=== PATIENT | female | born 1975 ===

== ENCOUNTER 2017-08-13 01:11 | Emergency (ER) | payer SELFPAY ==
[2017-08-13 01:48] VITALS: BMI 25.6
[2017-08-13 01:49] VITALS: BP 141/78; PULSE 71; RESP 20; TEMP 98; O2SAT 99
--- NOTE | 2017-08-13 01:56 | ED PDOC ---
HPI: General Adult Time Seen by Provider: 08/13/17 01:34 Chief Complaint (Nursing): Palpitations Chief Complaint (Provider): Palpitations History Per: Patient History/Exam Limitations: no limitations Onset/Duration Of Symptoms: Days (x 1), Intermittent Episodes (x 3) Current Symptoms Are (Timing): Still Present Additional Complaint(s): Radha is a 42 y/o female who presents to the ED c/o 3 episodes of palpitations since yesterday night. Currently her left arm also feels asleep. Patient denies chest pain, shortness of breath, or cardiac history, but admits to stress at home. She denies smoking or drug use. PMD: None Provided Past Medical History Reviewed: Historical Data, Nursing Documentation, Vital Signs Vital Signs: Last Vital Signs Temp 98.0 F 08/13/17 01:46 Pulse 71 08/13/17 01:46 Resp 20 08/13/17 01:46 BP 141/78 08/13/17 01:46 Pulse Ox 99 08/13/17 03:45 - Medical History Other PMH: Denies cardiac history - Family History Family History: States: Unknown Family Hx - Social History Current smoker - smoking cessation education provided: No Drugs: Denies - Home Medications Home Medications: Ambulatory Orders Medication Instructions Recorded Sulfamethoxazole/Trimethoprim 1 tab PO BID #14 tab 08/25/16 [Bactrim DS 800 mg-160 mg] - Allergies Allergies/Adverse Reactions: Allergies Allergy/AdvReac Type Severity Reaction Status Date / Time No Known Allergies Allergy Verified 08/13/17 01:51 Review of Systems ROS Statement: Except As Marked, All Systems Reviewed And Found Negative Cardiovascular: Positive for: Palpitations. Negative for: Chest Pain Respiratory: Negative for: Shortness of Breath Neurological: Positive for: Numbness (left arm "feels asleep") Physical Exam - Reviewed Nursing Documentation Reviewed: Yes Vital Signs Reviewed: Yes - Physical Exam Appears: Positive for: Non-toxic, No Acute Distress Head Exam: Positive for: ATRAUMATIC, NORMAL INSPECTION, NORMOCEPHALIC Skin: Positive for: Normal Color, Warm, Dry Eye Exam: Positive for: Normal appearance, EOMI, PERRL. Negative for: Nystagmus ENT: Positive for: Normal ENT Inspection Neck: Positive for: Normal, Painless ROM, Supple Cardiovascular/Chest: Positive for: Regular Rate, Rhythm. Negative for: Murmur Respiratory: Positive for: Normal Breath Sounds. Negative for: Respiratory Distress Gastrointestinal/Abdominal: Positive for: Normal Exam, Bowel Sounds, Soft. Negative for: Tenderness Back: Positive for: Normal Inspection Extremity: Positive for: Normal ROM. Negative for: Pedal Edema, Deformity Neurologic/Psych: Positive for: Alert, Oriented, Mood/Affect (anxious). Negative for: Motor/Sensory Deficits - Laboratory Results Result Diagrams: 08/13/17 02:24 08/13/17 02:24 - ECG O2 Sat by Pulse Oximetry: 99 (RA) Pulse Ox Interpretation: Normal Medical Decision Making Medical Decision Making: Time: 1:48 Initial Impression: Anxiety Initial Plan; --EKG --BMP --Troponin I --CBC --Chest x-ray Time: 3:44 --Patient is feeling better and is stable for discharge Scribe Attestation: Documented by Pernell Gonzalez, acting as a scribe for Rich Payne MD Provider Scribe Attestation: All medical record entries made by the Scribe were at my direction and personally dictated by me. I have reviewed the chart and agree that the record accurately reflects my personal performance of the history, physical exam, medical decision making, and the department course for this patient. I have also personally directed, reviewed, and agree with the discharge instructions and disposition. Disposition - Clinical Impression Clinical Impression: Palpitations - Patient ED Disposition Is Patient to be Admitted: No - Disposition Referrals: [facility] [Outside] Disposition Time: 03:44 Condition: STABLE Instructions: Palpitations (ED), Stress (ED) Forms: [facility] (Persian) Print Language: BENINESE
[2017-08-13 02:31] LABS: BASO % 0.7 % (0.0-2.0); EOS # 0.1 K/uL (0.0-0.7); EOS % 1.8 % (0.0-4.0); HEMATOCRIT 34.1 % (34.0-47.0); LYMPH % 28.7 % (20.0-40.0); MEAN CELL VOLUME 82.7 fl (81.0-99.0); MEAN CORPUSCULAR HGB CONC 32.6 g/dL (33.0-37.0); MEAN PLATELET VOLUME 10.2 fl (7.2-11.7); MONO # 0.7 K/uL (0.0-0.8); MONO % 9.5 % (0.0-10.0); NEUT # 4.2 K/uL (1.8-7.0); NEUT % 59.3 % (50.0-75.0); RED CELL DISTRIBUTION WIDTH 14.7 % (11.5-14.5)
[2017-08-13 02:36] LABS: BLOOD UREA NITROGEN 12 mg/dl (7-17); CALCIUM 8.4 mg/dL (8.4-10.2); CARBON DIOXIDE 26 mmol/L (22-30); CHLORIDE 108 mmol/L (98-107); GFR AFRICAN-AMERICAN > 60; GLUCOSE,RANDOM 109 mg/dL (65-105); POTASSIUM 3.4 MMOL/L (3.6-5.0); SODIUM 140 mmol/l (132-148)
--- NOTE | 2017-08-13 11:17 | RAD ---
HISTORY: palpitation COMPARISON: No prior. TECHNIQUE: Chest PA and lateral FINDINGS: LUNGS: No active pulmonary disease. PLEURA: No significant pleural effusion identified. No pneumothorax apparent. CARDIOVASCULAR: Normal. OSSEOUS STRUCTURES: No significant abnormalities. VISUALIZED UPPER ABDOMEN: Normal. OTHER FINDINGS: None. IMPRESSION: No active disease. Concordant results with the preliminary interpretation rendered by the emergency department physician procedure.
--- NOTE | 2017-08-14 17:48 | CARD ---
APPROVED REPORT EKG Measurement Heart [id number] <Conclusion> Normal sinus rhythm Normal ECG
== END 2017-08-13 03:50 | disposition home or self-care (01) ==
LOC: H.ER 01:11
DX: R00.2 Palpitations (principal); F41.9 Anxiety disorder, unspecified

== ENCOUNTER 2017-10-01 15:58 | Emergency (ER) | payer OTHER ==
[2017-10-01 15:59] VITALS: BMI 25.6
[2017-10-01 16:13] VITALS: BP 117/51; PULSE 98; RESP 18; TEMP 98.8; O2SAT 99
[2017-10-01] MEDS ORDERED: Sodium Chloride 0.9% 1,000 ML IV STA (17:26)
--- NOTE | 2017-10-01 18:24 | ED PDOC ---
HPI: General Adult Time Seen by Provider: 10/01/17 16:16 Chief Complaint (Nursing): Lower Extremity Problem/Injury History Per: Patient Additional Complaint(s): Pt. states since Thursday she's had "stiffening" of both feet and all fingers. States symptoms began after work. 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 Pt. states she took an OTC pain meds which did provide some relief but pain returned. Denies trauma, numbness, tingling, fever, chest pain, abdominal pain, N/V/D. Past Medical History Reviewed: Historical Data, Nursing Documentation, Vital Signs Vital Signs: Last Vital Signs Temp 98.8 F 10/01/17 16:06 Pulse 98 H 10/01/17 16:06 Resp 18 10/01/17 16:06 BP 117/51 L 10/01/17 16:06 Pulse Ox 99 10/01/17 18:26 - Family History Family History: States: No Known Family Hx - Home Medications Home Medications: Ambulatory Orders Medication Instructions Recorded Sulfamethoxazole/Trimethoprim 1 tab PO BID #14 tab 08/25/16 [Bactrim DS 800 mg-160 mg] Meloxicam [Mobic] 7.5 mg PO DAILY PRN #30 tab 10/01/17 - Allergies Allergies/Adverse Reactions: Allergies Allergy/AdvReac Type Severity Reaction Status Date / Time No Known Allergies Allergy Verified 10/01/17 16:14 Review of Systems ROS Statement: Except As Marked, All Systems Reviewed And Found Negative Physical Exam - Reviewed Nursing Documentation Reviewed: Yes Vital Signs Reviewed: Yes - Physical Exam Appears: Positive for: Well, Non-toxic, No Acute Distress Head Exam: Positive for: ATRAUMATIC, NORMAL INSPECTION, NORMOCEPHALIC Skin: Positive for: Normal Color, Warm. Negative for: Rash Eye Exam: Positive for: Normal appearance Neck: Positive for: Normal, Painless ROM Cardiovascular/Chest: Positive for: Regular Rate, Rhythm Respiratory: Positive for: CNT, Normal Breath Sounds Pulses-Dorsalis Pedis (L): 2+ Pulses-Dorsalis Pedis (R): 2+ Pulses-Radial (L): 2+ Pulses-Radial (R): 2+ Back: Positive for: Normal Inspection Extremity: Positive for: Normal ROM, Other (no joint swelling, tenderness, deformity, warmth, erythema). Negative for: Calf Tenderness (b/l) Neurologic/Psych: Positive for: Alert, Oriented. Negative for: Aphasia, Facial Droop - Laboratory Results Result Diagrams: 10/01/17 18:54 10/01/17 18:54 - ECG O2 Sat by Pulse Oximetry: 99 - Progress ED Course And Treament: Labs ordered. Toradol 30mg IV, IV NS bolus x 1 ordered. Disposition - Clinical Impression Clinical Impression: Arthralgia - Patient ED Disposition Is Patient to be Admitted: No - Disposition Referrals: [facility] [Outside] [facility] [Outside] Disposition: Routine/Home Disposition Time: 19:51 Condition: STABLE Additional Instructions: Follow up with [facility] for further evaluation. Return to ED immediately if symptoms persist or worsen. Prescriptions: Meloxicam [Mobic] 7.5 mg PO DAILY PRN #30 tab PRN Reason: Pain, Mild (1-3) Instructions: Arthralgia (ED) Forms: [facility] (English) Print Language: BELARUSIAN
[2017-10-01 19:00] LABS: BASO % 0.2 % (0.0-2.0); EOS # 0.2 K/uL (0.0-0.7); EOS % 1.8 % (0.0-4.0); HEMOGLOBIN 10.5 g/dL (12.0-16.0); LYMPH # 1.3 K/uL (1.0-4.3); LYMPH % 12.9 % (20.0-40.0); MEAN CELL VOLUME 83.5 fl (81.0-99.0); MEAN CORPUSCULAR HEMOGLOBIN 26.8 pg (27.0-31.0); MEAN CORPUSCULAR HGB CONC 32.2 g/dL (33.0-37.0); MONO # 0.7 K/uL (0.0-0.8); MONO % 6.9 % (0.0-10.0); NEUT # 7.9 K/uL (1.8-7.0); NEUT % 78.2 % (50.0-75.0); RBC 3.93 Mil/uL (3.80-5.20); RED CELL DISTRIBUTION WIDTH 14.7 % (11.5-14.5); WHITE BLOOD COUNT 10.1 K/uL (4.8-10.8)
[2017-10-01 19:10] LABS: SQUAMOUS EPITHIAL 7 /hpf (0-5); URINE BACTERIA OCC (<OCC); URINE BILIRUBIN NEGATIVE (NEGATIVE); URINE BLOOD NEGATIVE (NEGATIVE); URINE CLARITY SLIGHTY-CLOUDY (Clear); URINE COLOR YELLOW (YELLOW); URINE GLUCOSE (UA) NEG (Normal); URINE LEUKOCYTE ESTERASE NEG Leu/uL (Negative); URINE NITRATE NEGATIVE (NEGATIVE); URINE PROTEIN 30 mg/dL (NEGATIVE)
[2017-10-01 19:23] LABS: ALB/GLOB RATIO 0.9 (1.0-2.1); ALBUMIN 3.5 g/dL (3.5-5.0); ALT/SGPT 31 U/L (9-52); AST/SGOT 19 U/L (14-36); BLOOD UREA NITROGEN 12 mg/dl (7-17); CALCIUM 8.4 mg/dL (8.4-10.2); GFR AFRICAN-AMERICAN > 60; GFR NON-AFRICAN AMERICAN > 60
== END 2017-10-01 20:27 | disposition home or self-care (01) ==
LOC: H.ER 15:58
DX: M25.50 Pain in unspecified joint (principal)
CPT/HCPCS: 80053; 81003; 81025; 82550; 85025; 85651; 96374; 99283; J1885; J7040

== ENCOUNTER 2018-02-19 12:15 | Emergency (ER) | payer SELFPAY ==
[2018-02-19 12:33] VITALS: O2SAT 99
[2018-02-19 12:34] VITALS: BMI 33.8
[2018-02-19] MEDS ORDERED: Sodium Chloride 0.9% 1,000 ML IV SCH (13:15)
--- NOTE | 2018-02-19 13:16 | ED PDOC ---
HPI: Abdomen Time Seen by Provider: 02/19/18 12:42 Chief Complaint (Provider): vomiting, abdominal pain History Per: Patient History/Exam Limitations: no limitations Onset/Duration Of Symptoms: Days (1) Outside of [place] travel?: No Current Symptoms Are (Timing): Still Present Severity: Severe Pain Scale Rating Of: 10 Location Of Pain/Discomfort: RUQ Quality Of Discomfort: Cramping Associated Symptoms: Vomiting (2 episodes today), Constipation (last BM yesterday, hard stool). denies: Fever, Chills, Nausea, Diarrhea, Back Pain, Urinary Symptoms Exacerbating Factors: None Alleviating Factors: None Last Bowel Movement: Yesterday (hard stool) Additional History Per: Patient Additional Complaint(s): 42 yr old presents to ED with complaint of 2 episodes of nonbilious/ nonbloody emesis today and RUQ pain since yesterday. Denies PMHx. Reports RUQ abdominal pain has recurred a few times in the past 6 months, usually is alleviated by 1 dose of ibuprofen. Today pain is 10/10, crampy, associated with emesis, not alleviated by anything, exacerbated pressing on her abdomen. Denies fevers, chills, dysuria, hematuria, nausea, headaches, weakness or dizziness. Reports hx of constipation, last bowel movement was yesterday-hard stool. Last meal tolerated was rice and steak for dinner last night. LMP: 02/19/18 Ob: , x 2, with bilateral tubal ligation x 1 (d/t right foot fracture) PMD: Dr. Klein at [facility] PMHx: denies SurgHx: right foot fracture repair, x1 and BTL, left oophorectomy SocHx: denies tobacco, Etoh or drugs Medications: Ibuprofen PRN Allergies: NKDA Past Medical History Vital Signs: Last Vital Signs Temp 97.9 F 02/19/18 16:25 Pulse 81 02/19/18 16:25 Resp 14 02/19/18 16:25 BP 125/79 02/19/18 16:25 Pulse Ox 99 02/19/18 16:25 - Medical History PMH: No Chronic Diseases - Surgical History Surgical History: Other surgeries: bilateral tubal ligation, right foot fracture repair - Family History Family History: States: Unknown Family Hx - Living Arrangements Living Arrangements: With Family - Social History Current smoker - smoking cessation education provided: No Ex-Smoker (has not smoked in the last 12 months): No Alcohol: None Drugs: Denies - Allergies Allergies/Adverse Reactions: Allergies Allergy/AdvReac Type Severity Reaction Status Date / Time No Known Allergies Allergy Verified 10/01/17 16:14 Review of Systems Constitutional: Negative for: Fever, Chills, Weakness Eyes: Negative for: Vision Change ENT: Negative for: Nose Discharge, Throat Pain Cardiovascular: Negative for: Chest Pain, Palpitations Respiratory: Negative for: Cough, Shortness of Breath Gastrointestinal: Positive for: Vomiting, Abdominal Pain, Constipation. Negative for: Nausea, Diarrhea Genitourinary Female: Negative for: Dysuria, Frequency Musculoskeletal: Negative for: Neck Pain, Shoulder Pain, Arm Pain Skin: Negative for: Rash, Lesions Neurological: Negative for: Weakness, Numbness, Altered Mental Status, Headache , Dizziness Physical Exam - Physical Exam Appears: Positive for: No Acute Distress Head Exam: Positive for: ATRAUMATIC, NORMOCEPHALIC Skin: Positive for: Normal Color, Warm, Dry Eye Exam: Positive for: EOMI, PERRL ENT: Negative for: Pharyngeal Erythema, Tonsillar Exudate Neck: Positive for: Painless ROM, Supple Cardiovascular/Chest: Positive for: Regular Rate, Rhythm. Negative for: Gallop , Murmur Respiratory: Positive for: Normal Breath Sounds. Negative for: Crackles, Rales , Rhonchi Pulses-Carotid (L): 2+ Pulses-Carotid (R): 2+ Pulses-Radial (L): 2+ Pulses-Radial (R): 2+ Gastrointestinal/Abdominal: Positive for: Bowel Sounds (normal), Soft (obese), Tenderness (severe RUQ tenderness to palpation, positive Barnard's sign, no rebound tenderness, no guarding). Negative for: Distended Back: Positive for: Normal Inspection Extremity: Positive for: Normal ROM. 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 Negative for: Motor/Sensory Deficits - Laboratory Results Result Diagrams: 02/19/18 13:19 02/19/18 13:19 - ECG O2 Sat by Pulse Oximetry: 99 - Progress ED Course And Treament: -CBC w/diff: normal -CMP: normal -lipase: normal -Udip: within normal limits -Upreg: negative -1L NS IV bolus, Pepcid 20mg IV once, Toradol 30mg IV once, Bentyl 10mg PO once -Abd US limited GB included: no cholelithiasis, hepatic steatosis present, limited evaluation of pancreas -13:20 Patient symptoms improved -15:00 PO challenge -17:00 patient tolerated PO fluids and solid, vitals remained stable, symptoms resolved Disposition - Clinical Impression Clinical Impression: Abdominal pain - Patient ED Disposition Is Patient to be Admitted: No Counseled Patient/Family Regarding: Diagnosis, Need For Followup - Disposition Referrals: Kayy Klein MD [Resident] - Disposition: Routine/Home Disposition Time: 17:28 Condition: IMPROVED Additional Instructions: -Follow up with your PMD within 2-3 days -Adequate hydration, small regular meals -Return to ED if symptoms worsen, persist or if any concern Instructions: Acute Abdomen (Belly Pain), Adult (DC), Nausea and Vomiting, Adult (DC) Print Language: YAKUT
[2018-02-19 13:25] LABS: BASO % 0.3 % (0.0-2.0); EOS % 0.3 % (0.0-4.0); HEMOGLOBIN 12.5 g/dL (12.0-16.0); LYMPH # 0.8 K/uL (1.0-4.3); LYMPH % 7.9 % (20.0-40.0); MEAN CELL VOLUME 84.5 fl (81.0-99.0); MEAN CORPUSCULAR HEMOGLOBIN 27.8 pg (27.0-31.0); MEAN CORPUSCULAR HGB CONC 32.9 g/dL (33.0-37.0); MEAN PLATELET VOLUME 10.3 fl (7.2-11.7); MONO # 0.4 K/uL (0.0-0.8); MONO % 3.4 % (0.0-10.0); NEUT # 9.1 K/uL (1.8-7.0); NEUT % 88.1 % (50.0-75.0); PLATELET COUNT 202 K/uL (130-400); RED CELL DISTRIBUTION WIDTH 14.2 % (11.5-14.5); WHITE BLOOD COUNT 10.3 K/uL (4.8-10.8)
[2018-02-19 13:33] LABS: ALB/GLOB RATIO 0.9 (1.0-2.1); ALBUMIN 3.9 g/dL (3.5-5.0); ALT/SGPT 29 U/L (9-52); AST/SGOT 19 U/L (14-36); BLOOD UREA NITROGEN 13 mg/dl (7-17); CALCIUM 8.4 mg/dL (8.4-10.2); GFR AFRICAN-AMERICAN > 60; GFR NON-AFRICAN AMERICAN > 60; LIPASE 45 U/L (23-300)
[2018-02-19] MEDS ORDERED: Famotidine 20mg/50ml 20 MG/50 ML BAG IVPB ONE ×2 (13:45→14:06)
--- NOTE | 2018-02-19 14:09 | US ---
HISTORY: vomiting, severe RUQ pain COMPARISON: None. TECHNIQUE: Sonographic evaluation of the right upper quadrant of the abdomen. FINDINGS: LIVER: Measures 16.2 cm in length. Increased echogenicity of the liver parenchyma. No mass. No intrahepatic bile duct dilatation. GALLBLADDER: Unremarkable. No gallstones. COMMON BILE DUCT: Measures 3 mm. No stones. No dilatation. PANCREAS: Not well-visualized. RIGHT KIDNEY: Measures 10.8 x 5.5 x 4.6 cm in length. Normal echogenicity. No calculus, mass, or hydronephrosis. AORTA: No aneurysmal dilatation. IVC: Unremarkable. OTHER FINDINGS: None . IMPRESSION: Hepatic steatosis. No cholelithiasis. Limited evaluation of the pancreas.
[2018-02-19 14:37] LABS: ANISOCYTOSIS SLIGHT; EOSINOPHIL 1 % (0-7); LARGE PLATELETS PRESENT; LYMPHOCYTE 10 % (20-50); MONOCYTE 4 % (0-10); NEUTROPHIL 85 % (42-75); OVALOCYTES MODERATE; PLATELET ESTIMATE NORMAL (NORMAL); TOTAL CELLS COUNTED 100
[2018-02-19 16:37] VITALS: RESP 14
[2018-02-19 18:06] VITALS: BP 125/75; PULSE 75; TEMP 98
== END 2018-02-19 18:07 | disposition home or self-care (01) ==
LOC: H.ER 12:15
DX: R10.11 Right upper quadrant pain (principal); K76.0 Fatty (change of) liver, not elsewhere classified
CPT/HCPCS: 76705; 80053; 81025; 83690; 85025; 96374; 99284; J1885; J7040

== ENCOUNTER 2018-07-23 00:14 | Emergency (ER) | payer OTHER ==
[2018-07-23 00:14] VITALS: BMI 33.8
[2018-07-23 00:39] VITALS: TEMP 98.6
[2018-07-23] MEDS ORDERED: Sodium Chloride 0.9% 1,000 ML IV STA (01:14)
[2018-07-23 01:40] LABS: BASO % 0.5 % (0.0-2.0); EOS # 0.1 K/uL (0.0-0.7); EOS % 1.3 % (0.0-4.0); HEMOGLOBIN 12.4 g/dL (12.0-16.0); LYMPH # 2.1 K/uL (1.0-4.3); LYMPH % 25.2 % (20.0-40.0); MEAN CELL VOLUME 86.1 fl (81.0-99.0); MEAN CORPUSCULAR HGB CONC 33.7 g/dL (33.0-37.0); MEAN PLATELET VOLUME 9.9 fl (7.2-11.7); MONO # 0.8 K/uL (0.0-0.8); MONO % 9.8 % (0.0-10.0); NEUT # 5.3 K/uL (1.8-7.0); NEUT % 63.2 % (50.0-75.0); RBC 4.26 Mil/uL (3.80-5.20); RED CELL DISTRIBUTION WIDTH 14.2 % (11.5-14.5); WHITE BLOOD COUNT 8.4 K/uL (4.8-10.8)
[2018-07-23 01:48] LABS: ALBUMIN 3.5 g/dL (3.5-5.0); ALT/SGPT 31 U/L (9-52); AST/SGOT 17 U/L (14-36); BLOOD UREA NITROGEN 12 mg/dl (7-17); CALCIUM 8.5 mg/dL (8.4-10.2); GFR NON-AFRICAN AMERICAN > 60; LIPASE 52 U/L (23-300)
[2018-07-23] MEDS ORDERED: Sodium Chloride 0.9% 50 ML IV ONE (02:00)
[2018-07-23] MEDS ORDERED: Iohexol 300 100 ML IJ ONE (02:00)
--- NOTE | 2018-07-23 02:31 | ED PDOC ---
HPI: Back Time Seen by Provider: 07/23/18 00:59 Chief Complaint (Nursing): Hip Pain Chief Complaint (Provider): Right Flank Pain History Per: Patient History/Exam Limitations: no limitations Onset/Duration Of Symptoms: Hrs Current Symptoms Are (Timing): Still Present Quality Of Discomfort: "Pain" Additional Complaint(s): 43 year old female presents to the ER for an evaluation of right flank pain onset today morning. Patient states the pain is constant and worsening. She reports she had multiple episodes of vomiting. Denies diarrhea, fever or urinary symptoms. PMD: No Family Provider Past Medical History Reviewed: Historical Data, Nursing Documentation, Vital Signs Vital Signs: Last Vital Signs Temp 98.6 F 07/23/18 00:36 Pulse 70 07/23/18 00:36 Resp 13 07/23/18 00:36 BP 131/75 07/23/18 00:36 Pulse Ox 98 07/23/18 00:36 - Medical History PMH: No Chronic Diseases - Surgical History Surgical History: (x3) Other surgeries: ovary removal - Family History Family History: States: Unknown Family Hx - Social History Current smoker - smoking cessation education provided: No Alcohol: None Drugs: Denies - Allergies Allergies/Adverse Reactions: Allergies Allergy/AdvReac Type Severity Reaction Status Date / Time No Known Allergies Allergy Verified 10/01/17 16:14 Review of Systems ROS Statement: Except As Marked, All Systems Reviewed And Found Negative Constitutional: Negative for: Fever Gastrointestinal: Positive for: Vomiting. Negative for: Diarrhea Genitourinary Female: Negative for: Dysuria, Frequency, Incontinence, Hematuria Musculoskeletal: Positive for: Back Pain (right flank) Physical Exam - Reviewed Nursing Documentation Reviewed: Yes Vital Signs Reviewed: Yes - Physical Exam Appears: Positive for: Non-toxic, No Acute Distress Head Exam: Positive for: ATRAUMATIC, NORMAL INSPECTION, NORMOCEPHALIC Skin: Positive for: Normal Color, Warm, Dry. Negative for: Rash Eye Exam: Positive for: EOMI, Normal appearance, PERRL ENT: Positive for: Normal ENT Inspection Neck: Positive for: Normal, Painless ROM, Supple. Negative for: Decreased ROM Cardiovascular/Chest: Positive for: Regular Rate, Rhythm. Negative for: Murmur Respiratory: Positive for: Normal Breath Sounds. Negative for: Decreased Breath Sounds, Wheezing, Respiratory Distress Gastrointestinal/Abdominal: Positive for: Normal Exam, Soft. Negative for: Tenderness, Guarding, Rebound Back: Positive for: Other (Right flank pain). Negative for: L CVA Tenderness, R CVA Tenderness Extremity: Positive for: Normal ROM. Negative for: Tenderness, Pedal Edema, Deformity Neurologic/Psych: Positive for: Alert, Oriented (x3). Negative for: Motor/Sensory Deficits - Laboratory Results Result Diagrams: 07/23/18 01:37 07/23/18 01:37 - ECG O2 Sat by Pulse Oximetry: 98 (RA) Pulse Ox Interpretation: Normal - Progress Re-evaluation Time: 03:20 Condition: Re-examined, Improved Medical Decision Making Medical Decision Making: Time: 0113 Initial Impression: Right flank pain Differential Diagnosis includes but is not limited to: UTI, kidney stone, musculoskeletal pain Initial Plan: Abdomen & Pelvis IV contrast CT CMP Lipase ED Urine ED Urine Dipstick CBC w/ Differential Normal Saline 1000 mls/hr Toradol 30mg Reevaluation Time: 0257 Exam: CT SCAN OF THE ABDOMEN AND PELVIS WITH CONTRAST. CLINICAL HISTORY: Abdominal pain. TECHNIQUE: Multiple axial and coronal CT images were obtained through the abdomen and pelvis after administration of intravenous contrast material. COMMENTS: Moderate amount of fecal residue is noted in the large bowels. Uncomplicated colonic diverticulosis is seen. The liver is of uniform attenuation without mass or defect. There is no intra or extrahepatic biliary ductal dilatation. The spleen is normal. The gallbladder is within normal limits. The pancreas is of normal contour and attenuation characteristics. There is no evidence of adrenal mass. Both kidneys demonstrate prompt and equal nephrograms. The kidneys are normal in size, shape and configuration. There is no evidence of renal or ureteral mass. No renal or ureteral calculi are identified. There is no hydroureter or hydronephrosis. No evidence for appendicitis. There is no bowel wall thickening. No evidence for small or large bowel obstruction. There is no evidence of abdominal ascites or lymphadenopathy. There is no evidence of intrinsic or extrinsic bladder mass. There is no pelvic ascites or lymphadenopathy. Images of the lung bases show no evidence of pleural or parenchymal mass. There are no pleural effusions. The bony structures are free of lytic or blastic lesions. Fat containing umbilical hernia without incarceration. IMPRESSION: Moderate amount of fecal residue is noted in the large bowels. No evidence of acute abdominal or pelvic pathology. Scribe Attestation: Documented by Jessie Cameron, acting as a scribe for Gallito Klein MD. Provider Scribe Attestation: All medical record entries made by the Scribe were at my direction and personally dictated by me. I have reviewed the chart and agree that the record accurately reflects my personal performance of the history, physical exam, medical decision making, and the department course for this patient. I have also personally directed, reviewed, and agree with the discharge instructions and disposition. Disposition - Clinical Impression Clinical Impression: Flank pain - Patient ED Disposition Is Patient to be Admitted: No Doctor Will See Patient In The: Office Counseled Patient/Family Regarding: Studies Performed, Diagnosis, Need For Followup - Disposition Referrals: [facility] [Outside] Disposition: Routine/Home Disposition Time: 03:20 Condition: GOOD Additional Instructions: DRE CARLISLE, thank you for letting us take care of you today. Your provider was Gallito Klein MD and you were treated for RT SIDE PAIN. The emergency medical care you received today was directed at your acute symptoms. If you were prescribed any medication, please fill it and take as directed. It may take several days for your symptoms to resolve. Return to the Emergency Department if your symptoms worsen, do not improve, or if you have any other problems. Please contact your doctor or call one of the physicians/clinics you have been referred to that are listed on the Patient Visit Information form that is included in your discharge packet. Bring any paperwork you were given at discharge with you along with any medications you are taking to your follow up visit. Our treatment cannot replace ongoing medical care by a primary care provider outside of the emergency department. Thank you for allowing the [facility] team to be part of your care today. If you had an X-Ray or CT scan: A Radiologist will review the ED reading if any change in treatment is needed we will contact you. If you had a blood, urine, or wound culture: It will take several days for the results, if any change in treatment is needed we will contact you. If you had an STI test: It will take 48 hours for the results. Please call after 1 week if you have not heard back. Instructions: Flank Pain
[2018-07-23 03:46] VITALS: BP 111/73; PULSE 77; RESP 20; O2SAT 100
--- NOTE | 2018-07-23 10:57 | CT ---
Date of service: 07/23/2018 PROCEDURE: CT Abdomen and Pelvis with contrast HISTORY: right flank pain COMPARISON: Limited abdomen ultrasound 02/19/2018. TECHNIQUE: Following the intravenous administration of iodinated contrast material, a CT examination of the abdomen and pelvis performed from the domes of the diaphragms to the symphysis pubis with reformatted datasets provided in axial, sagittal and coronal planes. Oral contrast was not administered as per referring physician request. Coronal and sagittal reformats were generated. contrast dose: Omnipaque 300, 95 cc Radiation dose: Total exam DLP = 714.19 mGy-cm. This CT exam was performed using one or more of the following dose reduction techniques: Automated exposure control, adjustment of the mA and/or kV according to patient size, and/or use of iterative reconstruction technique. FINDINGS: LOWER THORAX: Unremarkable. LIVER: Unremarkable. No gross lesion or ductal dilatation. GALLBLADDER AND BILE DUCTS: Gallbladder is nearly completely contracted. No radiodense cholelithiasis identified in the lumen. PANCREAS: Unremarkable. No gross lesion or ductal dilatation. SPLEEN: Unremarkable. ADRENALS: Unremarkable. No mass. KIDNEYS AND URETERS: Unremarkable. No hydronephrosis. No solid mass. VASCULATURE: Unremarkable. No aortic aneurysm. No aortic atherosclerotic calcification or mural plaque present. BOWEL: Stomach is nearly completely collapsed and is poorly evaluated. Further, evaluation of the gastrointestinal tract is limited due to the lack of oral contrast administration. Moderate fecal loading is seen in the colon, somewhat more so proximally than distally. No bowel obstruction or perienteric or pericolic reactive changes appreciated. APPENDIX: Normal appendix. PERITONEUM: There is a tiny umbilical hernia containing only mesenteric fat. No ascites. No free air. LYMPH NODES: Unremarkable. No enlarged lymph nodes. BLADDER: Unremarkable. REPRODUCTIVE: 1.7 cm cyst is suspected at the left adnexal compartment. BONES: No acute fracture. OTHER FINDINGS: None. IMPRESSION: 1. Normal appendix. 2. No bowel obstruction, mesenteric edema, ascites or free intra peritoneal gas collection identified. Moderate fecal loading is seen more at the proximal than distal large bowel. 3. Small left adnexal cyst suspected. Discordant preliminary report from [facility] (small left adnexal cyst), 07/23/2018.
== END 2018-07-23 03:46 | disposition short-term general hospital (02) ==
LOC: H.ER 00:14
DX: R10.9 Unspecified abdominal pain (principal)
CPT/HCPCS: 74177; 80053; 81025; 83690; 85025; 96361; 96374; 99283; J1885; J7030; Q9967

== ENCOUNTER 2018-09-14 17:15 | Emergency (ER) | payer OTHER ==
[2018-09-14 17:15] VITALS: BMI 33.8
[2018-09-14 17:39] VITALS: RESP 18; O2SAT 99
[2018-09-14 18:49] LABS: BASO % 0.6 % (0.0-2.0); EOS # 0.1 K/uL (0.0-0.7); EOS % 1.4 % (0.0-4.0); HEMOGLOBIN 12.4 g/dL (12.0-16.0); LYMPH % 26.7 % (20.0-40.0); MEAN CELL VOLUME 87.5 fl (81.0-99.0); MEAN CORPUSCULAR HEMOGLOBIN 28.9 pg (27.0-31.0); MEAN PLATELET VOLUME 10.1 fl (7.2-11.7); MONO # 0.6 K/uL (0.0-0.8); MONO % 7.5 % (0.0-10.0); NEUT # 4.8 K/uL (1.8-7.0); NEUT % 63.8 % (50.0-75.0); RBC 4.29 Mil/uL (3.80-5.20); RED CELL DISTRIBUTION WIDTH 13.6 % (11.5-14.5); WHITE BLOOD COUNT 7.5 K/uL (4.8-10.8)
[2018-09-14 18:58] LABS: ALT/SGPT 32 U/L (9-52); AST/SGOT 25 U/L (14-36); BLOOD UREA NITROGEN 11 mg/dl (7-17); CALCIUM 8.6 mg/dL (8.4-10.2); GFR NON-AFRICAN AMERICAN > 60
--- NOTE | 2018-09-14 19:16 | ED PDOC ---
HPI: Abdomen Time Seen by Provider: 09/14/18 17:53 Chief Complaint (Nursing): Abdominal Pain Chief Complaint (Provider): abdominal pain History Per: Patient, [employer] (see RN note) History/Exam Limitations: no limitations Location Of Pain/Discomfort: RUQ, RLQ Quality Of Discomfort: Sharp Associated Symptoms: Nausea, Loss Of Appetite. denies: Vomiting Exacerbating Factors: None Alleviating Factors: None Additional Complaint(s): 43yo female c/o RLQ and RUQ pain radiating to back for several days associated with nausea, loss appetite. Denies fever, urinary symptoms or diarrhea. Past Medical History Reviewed: Historical Data, Nursing Documentation, Vital Signs Vital Signs: Last Vital Signs Temp 98.2 F 09/14/18 17:37 Pulse 77 09/14/18 17:37 Resp 18 09/14/18 17:37 BP 157/87 H 09/14/18 17:37 Pulse Ox 99 09/14/18 17:37 - Medical History PMH: No Chronic Diseases - Surgical History Surgical History: (x3) Other surgeries: R oophorectomy for ovarian cyst? in [place] - Family History Family History: States: Unknown Family Hx - Living Arrangements Living Arrangements: With Family - Allergies Allergies/Adverse Reactions: Allergies Allergy/AdvReac Type Severity Reaction Status Date / Time No Known Allergies Allergy Verified 09/14/18 17:37 Review of Systems Constitutional: Negative for: Fever, Chills Cardiovascular: Negative for: Chest Pain Respiratory: Negative for: Cough Gastrointestinal: Positive for: Nausea, Abdominal Pain. Negative for: Vomiting, Diarrhea, Constipation, Melena Genitourinary Female: Negative for: Dysuria, Frequency Musculoskeletal: Positive for: Back Pain. Negative for: Neck Pain, Leg Pain Skin: Negative for: Rash, Jaundice Neurological: Negative for: Weakness, Numbness, Headache, Dizziness Psych: Negative for: Suicidal ideation Physical Exam - Reviewed Nursing Documentation Reviewed: Yes Vital Signs Reviewed: Yes - Physical Exam Appears: Positive for: Well, Non-toxic, No Acute Distress Head Exam: Positive for: ATRAUMATIC, NORMAL INSPECTION, NORMOCEPHALIC Skin: Positive for: Normal Color, Warm, DRY Eye Exam: Positive for: EOMI, Normal appearance, PERRL ENT: Positive for: Normal ENT Inspection Neck: Positive for: Normal, Painless ROM Cardiovascular/Chest: Positive for: Regular Rate, Rhythm Respiratory: Positive for: CNT, Normal Breath Sounds Pulses-Radial (L): 3+/4+ Pulses-Radial (R): 3+/4+ Gastrointestinal/Abdominal: Positive for: Soft, Tenderness (R sided). Negative for: Distended, Guarding Pelvic Exam: Negative for: Blood Back: Positive for: Normal Inspection Extremity: Positive for: Normal ROM Neurologic/Psych: Positive for: Alert, Oriented. Negative for: Motor/Sensory Deficits - Laboratory Results Result Diagrams: 09/14/18 18:41 09/14/18 18:41 - ECG O2 Sat by Pulse Oximetry: 99 Medical Decision Making Medical Decision Making: prior chart reviewed w CT performed several months ago, appendix normal, no note missing ovary obtain repeat imaging given mcburneys tenderness also eval w US for presence of R ovary, patient unsure if removed. labs and pain medicine ordered Disposition - Clinical Impression Clinical Impression: Abdominal pain in female - Patient ED Disposition Is Patient to be Admitted: Transfer of Care - Disposition Disposition: Transfer of Care Disposition Time: 19:16 Condition: STABLE Patient Signed Over To: Jose Alberto Nevarez Handoff Comments: pending workup/labs/imaging/dispo/dx
[2018-09-14] MEDS ORDERED: Iohexol 300 100 ML IJ ONE (19:26)
[2018-09-14] MEDS ORDERED: Sodium Chloride 0.9% 50 ML IV ONE (19:26)
[2018-09-14 19:32] LABS: SQUAMOUS EPITHIAL 7 /hpf (0-5); URINE BILIRUBIN NEGATIVE (NEGATIVE); URINE BLOOD SMALL (NEGATIVE); URINE CLARITY SLIGHTY-CLOUDY (Clear); URINE COLOR STRAW (YELLOW); URINE GLUCOSE (UA) NEG (NEGATIVE); URINE LEUKOCYTE ESTERASE NEG Leu/uL (Negative); URINE PROTEIN NEGATIVE (NEGATIVE); URINE UROBILINOGEN 0.2-1.0 mg/dL (0.2-1.0)
--- NOTE | 2018-09-14 20:26 | ED PDOC ---
- Laboratory Results Result Diagrams: 09/14/18 18:41 09/14/18 18:41 - ECG O2 Sat by Pulse Oximetry: 99 (RA) Pulse Ox Interpretation: Normal Medical Decision Making Medical Decision Making: Time: 1899 --Patient signed out to this provider by Dr. Montanez, pending imagining and disposition. Time: 2009 CT abd & pelvis: FINDINGS: LUNG BASES: The lung bases appear clear. No pleural effusions are seen. LIVER: Unremarkable. GALLBLADDER AND BILE DUCTS: The gallbladder appears within normal limits. No radioopaque gallstones are seen. No biliary ductal dilatation is evident. PANCREAS: Unremarkable. SPLEEN: Unremarkable. ADRENAL GLANDS: Unremarkable. KIDNEYS, URETERS, AND BLADDER: The kidneys appear within normal limits. There is no hydronephrosis or hydroureter. No urinary calculi are seen. STOMACH AND BOWEL: Unremarkable appearance of the stomach and bowel. No evidence of bowel obstruction. No evidence suggesting enteritis or colitis. APPENDIX: No evidence of acute appendicitis on CT examination. PERITONEUM: No free fluid. No free air. LYMPH NODES: No lymphadenopathy is evident. REPRODUCTIVE: Uterus and ovaries are unremarkable. VASCULATURE: No evidence of abdominal aortic aneurysm. BONES: No aggressive appearing osseous lesion. No acute osseous pathology evident. IMPRESSION: No acute intra-abdominal or pelvic abnormality. Time: 2046 Pelvis/Transvaginal US: Findings Uterus Measures 11.7 x 4.5 x 6 cm. Normal in size. Inhomogeneous fundus. No fibroid or other mass lesion seen. Endometrium Measures 10 mm in diameter. Unremarkable. Right ovary Not seen. Left ovary Measures 3 x 2 x 3.3 cm. No solid mass. Normal flow. Simple cyst measures 1.8 x 1.6 x 1.6 cm. Free fluid No significant free fluid noted. Other Findings None. Impression 1. Inhomogeneous fundus possible due to myomatosis vs adenomyosis. 2. Left ovarian cyst. pt awarre of results including fibroids and ovarian cysts. pt instructed to follow up with outpt gynecology. Scribe Attestation: Documented by Kiersten Lynne, acting as a scribe for Jose Alberto Nevarez MD Provider Scribe Attestation: All medical record entries made by the Scribe were at my direction and personally dictated by me. I have reviewed the chart and agree that the record accurately reflects my personal performance of the history, physical exam, medical decision making, and the department course for this patient. I have also personally directed, reviewed, and agree with the discharge instructions and disposition. Disposition Counseled Patient/Family Regarding: Studies Performed, Diagnosis, Need For Followup - Clinical Impression Clinical Impression: Abdominal pain in female, Ovarian cyst, Fibroid - POA Present On Arrival: None - Disposition Referrals: [facility] [Outside] [facility] [Outside] Disposition: Routine/Home Disposition Time: 23:22 Condition: IMPROVED Additional Instructions: marilin un seguimiento con un gineclogo en phill de la penelope segn las instrucciones dentro de alhaji semana volver a la catherine de urgencias con cualquier empeoramiento o sntomas relacionados Instructions: Ovarian Cysts, Uterine Fibroids Forms: Venyo (Ghanaian), Venyo (Vietnamese) Print Language: JAPANESE
[2018-09-14 23:33] VITALS: BP 138/79; PULSE 81; TEMP 98.4
--- NOTE | 2018-09-15 10:45 | US ---
Date of service: 09/14/2018 PROCEDURE: HISTORY: R sided pelvic abd pain hx ?R oophorectomy COMPARISON: None available TECHNIQUE: Transabdominal transvaginal scanning performed. FINDINGS: Anteverted use uterus measuring 11.7 x 4.5 x 6.0 cm. Mild inhomogeneity at the fundus. No discrete fibroid identified. Endometrium measuring 1.0 cm within normal limits for a patient with menses. LMP 09/04/2018. Right ovary not visualized consistent with the clinical history provided of a prior right oophorectomy 10+ years ago-reason for the right oophorectomy unknown. Left ovary 3.0 x 2.0 x 1.3 cm. A dominant benign follicular appearing type cyst is noted measuring 1.8 x 1.6 x 1.6 cm. No free fluid in the cul-de-sac seen. IMPRESSION: Nonvisualized right ovary compatible with prior right nephrectomy 10+ years ago. No discrete uterine masses seen. Mild lobulation to the uterine contour with mild heterogeneity. No discrete fibroids identified. Left ovarian benign-appearing follicular cyst measuring up to 1.8 cm. No free fluid in the cul-de-sac noted. 10 mm endometrium within normal limits for patient's age and menstrual status. Correlate clinically. Concordant results (preliminary interpretation) provided by [facility].
--- NOTE | 2018-09-15 12:19 | CT ---
Date of service: 09/14/2018 PROCEDURE: CT Abdomen and Pelvis with contrast HISTORY: persistent R sided abd pain nausea x4 days COMPARISON: CT abdomen and pelvis 07/23/2018 and a pelvic and transvaginal ultrasound from 04/14/2018 TECHNIQUE: Contrast dose: 95 mL Omnipaque 300 Radiation dose: Total exam DLP = 922.96 mGy-cm. This CT exam was performed using one or more of the following dose reduction techniques: Automated exposure control, adjustment of the mA and/or kV according to patient size, and/or use of iterative reconstruction technique. FINDINGS: LOWER THORAX: Unremarkable. LIVER: Unremarkable. No gross lesion or ductal dilatation. GALLBLADDER AND BILE DUCTS: Unremarkable. PANCREAS: Unremarkable. No gross lesion or ductal dilatation. SPLEEN: Unremarkable. ADRENALS: Unremarkable. No mass. KIDNEYS AND URETERS: Unremarkable. No hydronephrosis. No solid mass. VASCULATURE: Unremarkable. No aortic aneurysm. No aortic atherosclerotic calcification or mural plaque present. BOWEL: Unremarkable. No obstruction. No gross mural thickening. APPENDIX: Normal appendix. PERITONEUM: Unremarkable. No free fluid. No free air. LYMPH NODES: Unremarkable. No enlarged lymph nodes. BLADDER: Unremarkable. REPRODUCTIVE: A left adnexal hypodensity compatible with a left ovarian cyst probably a physiologic cyst is noted in the size of this is smaller than that previously suggested on the prior CT. No right ovary identified.-this is compatible with a prior oophorectomy. BONES: No acute fracture. OTHER FINDINGS: A fat only containing umbilical small hernias noted. IMPRESSION: The prior 07/23/2018 left adnexal hypodensity compatible with prior left ovarian cyst is smaller in size on this exam. Current appearance is compatible with a physiologic left ovarian cyst-please note the same-day pelvic/transvaginal ultrasound report. Nonvisualized right ovary compatible with this prior oophorectomy status. No interval pathology noted. Concordant results (preliminary interpretation) provided by [facility].
== END 2018-09-14 23:33 | disposition home or self-care (01) ==
LOC: H.ER 17:15
DX: R10.31 Right lower quadrant pain (principal); N83.202 Unspecified ovarian cyst, left side; D25.9 Leiomyoma of uterus, unspecified; Z90.5 Acquired absence of kidney
CPT/HCPCS: 74177; 76830; 76856; 80053; 81003; 81025; 85025; 96374; 99284; J1885; Q9967